=== PATIENT | female | born 1990 ===

== ENCOUNTER 2019-09-26 19:28 | Inpatient (IN) | payer BC ==
[2019-09-26] MEDS ORDERED: Ibuprofen 800 MG TAB PO PRN (23:45)
[2019-09-26] MEDS ORDERED: Misoprostol 200 MCG TAB RC PRN (23:45)
[2019-09-26] MEDS ORDERED: Methylergonovine 0.2 MG/ML VIAL IM PRN (23:45)
[2019-09-26] MEDS ORDERED: NS / Oxytocin 40 units/1000ml 1,000 ML IV SCH (23:45)
[2019-09-26] MEDS ORDERED: Lidocaine 1% (PF) 30 ML VIAL SC PRN (23:45)
[2019-09-26] MEDS ORDERED: NS w/ Oxytocin 10 units 500 ML IV SCH ×2 (23:45)
[2019-09-26] MEDS ORDERED: Promethazine HCl 25 MG/ML VIAL IM PRN (23:46)
[2019-09-26] MEDS ORDERED: Acetaminophen 500 MG TAB PO PRN (23:46)
[2019-09-26] MEDS ORDERED: Ondansetron PF 4 MG/2 ML Vial IVP PRN (23:46)
[2019-09-26] MEDS ORDERED: hydrALAZINE 20 MG/ML VIAL SLOW IVP PRN (23:46)
[2019-09-26] MEDS ORDERED: Butorphanol Tartrate 1 MG/ML VIAL SLOW IVP PRN (23:46)
[2019-09-27 00:37] LABS: Hemoglobin 11.7 g/dL (12.0-16.0); Mean Corpuscular HGB CONC 33.7 g/dL (32.0-36.0); Mean Corpuscular Hemoglobin 28.5 pg (27.0-31.0); Mean Corpuscular Volume 84.6 fL (78.0-98.0); Mean Platelet Volume 9.8 fL (7.4-10.4); Platelet Count 218 thou/uL (130-400); RBC Distribution Width 12.4 % (11.5-14.5); Red Blood Cell (RBC) Count 4.12 mill/uL (4.20-5.40); White Blood Cell (WBC) Count 16.3 thou/uL (4.8-10.8)
[2019-09-27 01:18] LABS: HBSAg Index 0.29 S/CO (0-0.99); Hep B Surf Ag Non-Reactive S/CO (NonReactive)
[2019-09-27 05:05] LABS: Syphilis Antibody Nonreactive (Nonreactive); Syphilis Antibody Index 0.05 S/CO (<1.00 Non-Reactive)
[2019-09-27] MEDS ORDERED: Fentanyl 4 mcg/Bup 0.1% Cadd 100 ML ONE (08:09)
[2019-09-27] MEDS ORDERED: EPHEDRINE 25 MG/5 ML SYRINGE SLOW IVP PRN (08:56)
[2019-09-27] MEDS ORDERED: diphenhydrAMINE 50 MG/ML VIAL IVP PRN (08:56)
[2019-09-27] MEDS ORDERED: Ondansetron PF 4 MG/2 ML Vial IVP PRN ×2 (08:56→12:49)
[2019-09-27] MEDS ORDERED: Promethazine HCl 25 MG/ML VIAL IM PRN (08:56)
[2019-09-27] MEDS ORDERED: Lactated Ringer's 500 ML IV PRN (08:56)
[2019-09-27] MEDS ORDERED: Acetaminophen 325 MG TAB PO PRN (08:56)
[2019-09-27] MEDS ORDERED: Naloxone HCl 0.4 mg/ml Vial IVP PRN ×2 (08:56)
[2019-09-27] MEDS ORDERED: Fentanyl 4 mcg/Bupivacaine 0.1% Cassette 100 ML EPIDURAL SCH (09:00)
[2019-09-27] MEDS ORDERED: Communication Order-Pharmacy FS SCH (09:00)
[2019-09-27] MEDS ORDERED: NS / Oxytocin 40 units/1000ml 1,000 ML ONE (10:00)
[2019-09-27] MEDS ORDERED: Methylergonovine 0.2 MG/ML VIAL ONE (10:20)
[2019-09-27] MEDS ORDERED: Misoprostol 200 MCG TAB ONE (10:20)
[2019-09-27] MEDS ORDERED: CEFAZOLIN 2 GM in Premix Bag 1 BAG IVPB SCH ×3 (11:45→14:00)
--- NOTE | 2019-09-27 12:09 | PDOC.LDHP ---
Labor and Delivery H&P Chief complaint: contractions HPI: Yesterday at 5pm she started contractions which were regular in a pattern. She called the [employer]stone fitter and discussed it with him. She waiting awhile to arrive to hospital and walked for a few hours before being admitted. Current gestational age (weeks): 41 Dating criteria: last menstrual period (verified with 1st trimester US as 9w1d) Grav: 2 Para: 1 OB History Details: in 2017 Current complications: other (postdates) Abnormal US findings: No Current medications: pre- vitamins, other (Rhogam given on 06/28/20) Previous surgical history: other (tonsillectomy) Allergies/Adverse Reactions: Allergies Allergy/AdvReac Type Severity Reaction Status Date / Time No Known Allergies Allergy Unverified 09/26/19 20:25 Social history: none - Physical Exam Vital signs reviewed and normal: yes General: breathing through contractions Lungs: nonlabored breathing Abdomen: gravid FHT: category 1 - Vaginal Exam cm dilated: 6 Effacement: 100% Station: -1 - OB Labs Blood type: A RH: negative Antibody Screen: negative HIV: negative RPR: negative HEPSAg: negative 1 hour GCT: negative GBS: negative Urine drug screen: negative Rubella: immune - Assessment L&D Assessment: term patient in labor - Plan Plan: admit to L&D, informed consent obtained, anesthesia consult for pain management -: AROM - with thin meconium Epidural requested. Anticipate
--- NOTE | 2019-09-27 12:14 | CON ---
DATE OF CONSULTATION: 09/27/2019 PRIMARY OB: Ms. Pam Ramey . CHIEF COMPLAINT: Retained placenta. HISTORY OF PRESENT ILLNESS: The patient is a 29-year-old, G2, now P2 female, who upon delivery of her baby experienced a retained placenta, as more than 30 minutes out from delivery, the placenta still was not delivering. I was asked to come to the room. At the time of presentation, Ms. Pam Ramey explained to me while she was examining the patient that the placenta feels adherent to the uterine wall. On bimanual extraction, Ms. Orozco was attempting to remove the placenta manually. She reported this adherent site of the placenta seem to be on the posterior aspect of the uterus near the fundus. In interviewing the patient, patient denies any history of intrauterine manipulation such as a D and C, surgery involving the uterus such as or myomectomy. The patient denies any complications with her last . The patient currently has an epidural and has been tolerating very well. Ms. Orozco has bimanual exams and attempt to manual extraction. Vital signs at time of my presentation to the room; blood pressure 111/59, pulse of 112, respiratory rate of 18. The patient is afebrile. At the time of my evaluation, the patient was approximately 45 minutes from the time of delivery. The placenta remained completely inside the uterus. The patient tolerated bimanual exam. Upon attempting to identify the planes of the uterus and the cervix, cervix was still dilated sufficiently for my hand to present into the uterine cavity. The uterus felt much retroverted and is attempting to identify the planes between the uterus and the placenta, there did appear a feel to be a very adherent section of the placenta and uterus, was very difficult to separate and working around this area, I did find a plane where the majority of the placenta was more easily removed with some manual separation. The plane was clean and with this performed, the remaining portion of the placenta was pinched separately from the uterus itself with care to palpate a clean plane as much as possible. After about 5 minutes, the placenta was delivered and upon inspection appeared to be ratty but complete, upon manual evaluation of the endometrium, the endometrium of the uterus felt smooth. They did not feel to have any palpable remnants of placenta adherent to the uterine wall. Vigorous bimanual massage was performed as the patient was having some bleeding. Cytotec, Methergine and Pitocin were given or resumed. The bleeding abated rather quickly and the uterus involuted well. At the conclusion of this consultation, there was no vaginal bleeding. The uterus was firm and the medications were in place. The recommendations were made to Ms. Orozco to give 2 g of Ancef for prophylaxis given the uterine manipulation. Initial recommendations were to use it for the next 24 hours. However upon further review, I believe at this time, a single dose should be sufficient with close evaluation for other signs of infection. The patient also will be placed on p.o. q.6 hours x4. Approximately 20 minutes in total was spent in the room for this consultation and assessing, evaluating and managing this retained placenta. Job ID: [id number]
--- NOTE | 2019-09-27 12:16 | PDOC.OPDEL ---
OB Operative/Delivery Note Delivery Dr/Surgeon: Karoline Assist: Lilliana Pre-Delivery Diagnosis: active labor Procedure/Post Delivery Dx: spontaneous vaginal delivery Weeks gestation: 41 Anesthesia: epidural - Findings A Sex: male - 1 min: 8 - 5 min: 8 - Additional Findings/Plan Placenta delivered: manual removal (after 30 mins, placenta was retained. 3rd stage pitocin was discontinued momentarily to allow for manual removal. Placenta was adherent and I was unable to remove. Uterotonics to room and Dr. Tijerina OB hospitalist was requested. He was able to manually remove placenta.) Repaired Obstetrical Laceration: 1st degree (long 1st.) Estimated blood loss: 1300QBL Post delivery plan: routine recovery (Cytotec and methergine given. Will use Deven balloon if bleeding persists. NPO x 2 hours due to increase hemorrage risk Ancef 2gm Q8 x 24hrs due to increased risk of infection PO metherine continued for 24 hours)
[2019-09-27] MEDS ORDERED: Benzocaine-Menthol 82.5 ML CAN TOP PRN (12:49)
[2019-09-27] MEDS ORDERED: HYDROcodone/Acetaminophen 5/325 mg Tablet PO PRN ×2 (12:49)
[2019-09-27] MEDS ORDERED: Lanolin Ointment 7 GM TUBE TOP PRN (12:49)
[2019-09-27] MEDS ORDERED: hydrALAZINE 20 MG/ML VIAL SLOW IVP PRN (12:49)
[2019-09-27] MEDS ORDERED: NS / Oxytocin 40 units/1000ml 1,000 ML IV SCH (12:49)
[2019-09-27] MEDS ORDERED: Methylergonovine 0.2 MG TAB PO PRN (12:49)
[2019-09-27] MEDS ORDERED: Bisacodyl 10 MG SUPP PR PRN (12:49)
[2019-09-27] MEDS ORDERED: Milk Of Magnesia 30 ML UDCUP PO PRN (12:49)
[2019-09-27] MEDS: Ibuprofen 800 MG TAB PO SCH ×2 (13:50→22:29)
[2019-09-27] MEDS: Lactated Ringer's 1,000 ML IV SCH (13:51)
[2019-09-27] MEDS ORDERED: Methylergonovine 0.2 MG TAB PO SCH (15:00)
[2019-09-27] MEDS: Ferrous Sulfate 325 MG TAB PO SCH (15:06)
[2019-09-27] MEDS: Methylergonovine 0.2 MG TAB PO SCH ×2 (16:21→22:29)
[2019-09-27] MEDS: Docusate Calcium (SURFAK) 240 MG CAP PO SCH (22:29)
[2019-09-28] MEDS: Lactated Ringer's 1,000 ML IV SCH ×2 (04:24→10:36)
[2019-09-28] MEDS: Methylergonovine 0.2 MG TAB PO SCH ×2 (04:34→10:13)
[2019-09-28] MEDS: Ibuprofen 800 MG TAB PO SCH (06:22)
[2019-09-28 06:25] LABS: Hemoglobin 9.2 g/dL (12.0-16.0); Mean Corpuscular HGB CONC 33.4 g/dL (32.0-36.0); Mean Corpuscular Hemoglobin 28.8 pg (27.0-31.0); Mean Corpuscular Volume 86.1 fL (78.0-98.0); Mean Platelet Volume 9.3 fL (7.4-10.4); Platelet Count 199 thou/uL (130-400); RBC Distribution Width 12.6 % (11.5-14.5)
[2019-09-28] MEDS: Ferrous Sulfate 325 MG TAB PO SCH (08:30)
[2019-09-28] MEDS: Docusate Calcium (SURFAK) 240 MG CAP PO SCH (08:30)
[2019-09-28] MEDS ORDERED: Prenatal Vitamin 1 TAB PO SCH (09:00)
[2019-09-28] MEDS ORDERED: Adacel (T-DAP) 0.5 ML SYRINGE IM ONE (09:00)
[2019-09-28 11:30] VITALS: BP 100/52; TEMP 98.1
--- NOTE | 2019-09-30 09:33 | DIS ---
DATE OF ADMISSION: 09/26/2019 DATE OF DISCHARGE: 09/28/2019 PRIMARY MANAGER DISCOVERY: Ms. Pam Ramey, certified nurse director center. HISTORY OF PRESENT ILLNESS: The patient is a 29-year-old multiparous female, who delivered by a term spontaneous vaginal delivery yesterday, complicated by retained placenta requiring manual extraction. Over the last 24 hours, the patient has continued to have normal decreased lochia. She denies any significant pain. She does have some soreness from the procedures yesterday, but otherwise feels fine. She reports tolerating p.o., voiding on her own, having good pain control. PHYSICAL EXAMINATION: VITAL SIGNS: This morning, blood pressure is 100/55, temperature is 97.8, pulse is 75, respiratory rate of 12, saturating 98% on room air. GENERAL: She appears to be in no acute distress. She is alert, oriented, cooperative, and pleasant to interact with. HEENT: Head is normocephalic, atraumatic. Fundus is firm and nontender. EXTREMITIES: Nontender, nonedematous. The patient received 2 units of RhoGAM based on blood bank calculations. hemoglobin 9.2, hematocrit 27.6, the patient down from 11.7 and 34.8. DISCHARGE INSTRUCTIONS: The patient is being discharged home with ibuprofen p.r.n. for pain control. She has been given instructions to notify her provider if she starts showing signs or symptoms of infection including fever, increasing pain or bleeding. Otherwise, she will follow up with Ms. Orozco in 6 weeks for a routine visit. Job ID: [id number]
== END 2019-09-28 12:21 | disposition home or self-care (01) | DRG 806 ==
LOC: L&D/OP 19:28 → L&D-LIB 23:07 → L&D 09-27 08:31 → 3SW 09-27 12:59
PROVIDERS: ADMIT Obstetrics & Gynecology; ATTEND Advanced Practice Midwife
PROC: 10E0XZZ Delivery of Products of Conception, External Approach (ICD-10-PCS; principal; 2019-09-27)
PROC: 10D17Z9 Manual Extraction of Products of Conception, Retained, Via Natural or Artificial Opening (ICD-10-PCS; 2019-09-27)
PROC: 10907ZC Drainage of Amniotic Fluid, Therapeutic from Products of Conception, Via Natural or Artificial Opening (ICD-10-PCS; 2019-09-27)
PROC: 0HQ9XZZ Repair Perineum Skin, External Approach (ICD-10-PCS; 2019-09-27)
PROC: 3E0P7VZ Introduction of Hormone into Female Reproductive, Via Natural or Artificial Opening (ICD-10-PCS; 2019-09-27)
PROC: 3E033VJ Introduction of Other Hormone into Peripheral Vein, Percutaneous Approach (ICD-10-PCS; 2019-09-27)
PROC: 3E0334Z Introduction of Serum, Toxoid and Vaccine into Peripheral Vein, Percutaneous Approach (ICD-10-PCS; 2019-09-27)
DX: O48.0 Post-term pregnancy (principal); O72.2 Delayed and secondary postpartum hemorrhage; Z37.0 Single live birth; Z3A.41 41 weeks gestation of pregnancy; O77.0 Labor and delivery complicated by meconium in amniotic fluid; O70.0 First degree perineal laceration during delivery; Z23 Encounter for immunization
CPT/HCPCS: 36415; 51702; 84112; 85027; 85460; 85461; 86780; 86850; 86900; 86901; 87340; 90384; 96372; 99285; J0690; J2210